=== PATIENT | female | born 1975 | race Caucasian/White ===

== ENCOUNTER 2017-03-10 20:43 | Emergency (ER) | payer MEDICAID ==
[~2017-03-10] VITALS: Ht 154.9 cm; Wt 113.4 kg
[~2017-03-10 20:43] MED LIST: COL100 PO; NORCO1 TA1 PO
[2017-03-10 20:48] VITALS: Ht 154.9 cm; Wt 113.4 kg
[2017-03-10 23:05] VITALS: BP 145/95
== END 2017-03-12 01:25 | disposition left against medical advice (07) ==
LOC: ED 20:43
DX: Z53.21 Procedure and treatment not carried out due to patient leaving prior to being seen by health care provider (principal)

== ENCOUNTER 2017-07-20 09:23 | Emergency (ER) | payer MEDICAID ==
[~2017-07-20] VITALS: Ht 162.6 cm; Wt 102.6 kg
[2017-07-20 09:30] VITALS: Ht 162.6 cm; Wt 102.6 kg
[2017-07-20 12:28] VITALS: BP 135/77
== END 2017-07-20 12:28 | disposition home or self-care (01) ==
LOC: ED 09:23
DX: J06.9 Acute upper respiratory infection, unspecified (principal); J45.909 Unspecified asthma, uncomplicated
CPT/HCPCS: J7512; J7613; Q0162

== ENCOUNTER 2017-11-04 20:45 | Emergency (ER) | payer MEDICAID ==
[~2017-11-04] VITALS: Ht 160 cm; Wt 113.4 kg
[2017-11-04 20:46] VITALS: Ht 160 cm; Wt 113.4 kg
[2017-11-04 21:12] LABS: BASOPHIL % 0.5 % (0-2); PLATELET COUNT 301 x10^3mcL (130-400)
[2017-11-04 21:14] LABS: RED CELL DISTRIBUTION WIDTH 15.6 % (11.5-14.5)
[2017-11-04 21:26] LABS: CALCIUM 8.9 mg/dL (8.5-10.1); CARBON DIOXIDE 29.1 mmol/L (21-32); CHLORIDE SERUM 106 mmol/L (98-107); CREATININE SERUM 0.8 mg/dL (0.6-1.0); GFR1 > 60 mL/min; GLUCOSE SERUM 119 mg/dL (74-106); POTASSIUM SERUM 3.8 mmol/L (3.5-5.1); SODIUM SERUM 141 mmol/L (136-145)
[2017-11-04 21:31] LABS: ALBUMIN 3.8 g/dL (3.4-5.0); ALKALINE PHOSPHATASE 92 U/L (46-116); ALT/SGPT 33 U/L (14-59); AST/SGOT 28 U/L (15-37); BILIRUBIN TOTAL 0.22 mg/dL (0.20-1.00); TOTAL PROTEIN, SERUM 7.4 g/dL (6.4-8.2)
[2017-11-04 23:37] VITALS: BP 114/60
== END 2017-11-05 00:29 | disposition home or self-care (01) ==
LOC: ED 20:45
PROVIDERS: Emergency Medicine
DX: G44.209 Tension-type headache, unspecified, not intractable (principal); R55 Syncope and collapse; J45.909 Unspecified asthma, uncomplicated; Z90.49 Acquired absence of other specified parts of digestive tract
CPT/HCPCS: J2270; J2405; J7030

== ENCOUNTER 2017-11-09 22:11 | Emergency (ER) | payer MEDICAID ==
[~2017-11-09] VITALS: Ht 160 cm; Wt 104.3 kg
[2017-11-09 22:17] VITALS: Ht 160 cm; Wt 104.3 kg
[2017-11-10 02:01] VITALS: BP 119/62
== END 2017-11-10 02:01 | disposition home or self-care (01) ==
LOC: ED 22:11
DX: R51 Headache (principal); J45.909 Unspecified asthma, uncomplicated; R42 Dizziness and giddiness
CPT/HCPCS: J0780; J1885

== ENCOUNTER 2017-11-11 20:13 | Emergency (ER) | payer MEDICAID | END 2017-11-11 21:47 | disposition left against medical advice (07) | LOC: ED 20:13 | DX: Z53.21 Procedure and treatment not carried out due to patient leaving prior to being seen by health care provider (principal) ==

== ENCOUNTER 2017-12-04 21:05 | Emergency (ER) | payer MEDICAID ==
[~2017-12-04] VITALS: Ht 160 cm; Wt 104.4 kg
[2017-12-04 21:55] VITALS: Ht 160 cm; Wt 104.4 kg
[2017-12-05 02:00] VITALS: BP 136/77
== END 2017-12-05 02:00 | disposition home or self-care (01) ==
LOC: ED 21:05
DX: G89.29 Other chronic pain (principal); R51 Headache
CPT/HCPCS: 82962; J0780; J1100; J1885; J3030

== ENCOUNTER 2017-12-25 17:51 | Emergency (ER) | payer MEDICAID ==
[~2017-12-25] VITALS: Ht 162.6 cm; Wt 104.3 kg
[2017-12-25 18:18] VITALS: Ht 162.6 cm; Wt 104.3 kg
[2017-12-25 19:53] VITALS: BP 102/59
== END 2017-12-25 19:53 | disposition home or self-care (01) ==
LOC: ED 17:51
DX: R51 Headache (principal); R42 Dizziness and giddiness
CPT/HCPCS: J1885; J7030; J7040; J8597

== ENCOUNTER 2018-02-24 23:11 | Emergency (ER) | payer MEDICAID ==
[~2018-02-24] VITALS: Ht 160 cm; Wt 103.2 kg
[2018-02-25 00:43] LABS: BASOPHIL % 0.8 % (0-2); PLATELET COUNT 312 x10^3mcL (130-400)
[2018-02-25 00:46] LABS: RED CELL DISTRIBUTION WIDTH 16.5 % (11.5-14.5)
[2018-02-25 00:50] LABS: CARBON DIOXIDE 30.6 mmol/L (21-32); CHLORIDE SERUM 103 mmol/L (98-107); CREATININE SERUM 0.7 mg/dL (0.6-1.0); GFR1 > 60 mL/min; GLUCOSE SERUM 98 mg/dL (74-106); POTASSIUM SERUM 4.1 mmol/L (3.5-5.1); SODIUM SERUM 139 mmol/L (136-145)
[2018-02-25 00:55] LABS: ALBUMIN 3.7 g/dL (3.4-5.0); ALKALINE PHOSPHATASE 97 U/L (46-116); ALT/SGPT 23 U/L (14-59); AST/SGOT 25 U/L (15-37); BILIRUBIN TOTAL 0.25 mg/dL (0.20-1.00); TOTAL PROTEIN, SERUM 7.3 g/dL (6.4-8.2)
[2018-02-25 01:51] VITALS: BP 100/58
== END 2018-02-25 01:51 | disposition home or self-care (01) ==
LOC: ED 23:11
PROVIDERS: Emergency Medicine
DX: R55 Syncope and collapse (principal); R51 Headache; J45.909 Unspecified asthma, uncomplicated; W18.39XA Other fall on same level, initial encounter; Y93.89 Activity, other specified; Y92.89 Other specified places as the place of occurrence of the external cause; Y99.0 Civilian activity done for income or pay
CPT/HCPCS: J1885

== ENCOUNTER 2018-09-09 14:42 | Emergency (ER) | payer SELFPAY ==
[~2018-09-09] VITALS: Ht 152.4 cm; Wt 113.4 kg
[2018-09-09 14:48] VITALS: BP 111/75; Ht 152.4 cm; Wt 113.4 kg
== END 2018-09-09 15:46 | disposition home or self-care (01) ==
LOC: ED 14:42
DX: S63.502A Unspecified sprain of left wrist, initial encounter (principal); V49.9XXA Car occupant (driver) (passenger) injured in unspecified traffic accident, initial encounter; Y93.I9 Activity, other involving external motion; Y92.413 State road as the place of occurrence of the external cause; Y99.8 Other external cause status